=== PATIENT | female | born 1995 | race Caucasian/White ===

== ENCOUNTER 2020-07-18 01:52 | Outpatient (CLI) | payer MEDICAID, SELFPAY ==
--- NOTE | 2020-07-18 | DI.US_ITS ---
EXAM: US OB 2-3 TRIMESTER CLINICAL HISTORY: Z34.92, ANATOMY SURVEY. TECHNIQUE: Transabdominal obstetrical ultrasound was performed. COMPARISON: US US OB <14 WK W/TRANSVAG from 04/05/2020 FINDINGS: There is a single viable intrauterine gestation with cardiac activity identified-137 bpm. Amniotic fluid: There is a normal amount of amniotic fluid. Placental location: The placenta is anterior grade 1,with no evidence of placenta previa.This is from typical placenta to the internal cervical os is 7.8 cm on today's study. Cervical length is 3.2 cm and closed. ANATOMY: A 3 vessel umbilical cord is seen. A four-chamber cardiac view was obtained. Right and left ventricular outflow tracts were imaged. There are no obvious abnormalities of the spinal column evident. There is no obvious abnormal ity of the anterior abdominal wall. stomach and urinary bladder are identified and there is no evidence of hydronephrosis. No abnormalities of the upper lip region are identified. No evidence of choroid plexus cysts i n the brain. Dating parameters place this at approximately 22 weeks and 3 days gestational age. BPD measures 22 weeks and 6 days HC measures 22 weeks and 4 days AC measures 22 weeks and 5 days FL measures 21 weeks and 3 days Estimated weight is 486 gm-1 pound 1 ounce Fetus is at the 71st percentile on the Hadlock scale. IMPRESSION:: Single viable intrauterine gestation which is approximately 22 weeks and 3 days gestati onal age, implying an ROLANDO of November 18, 2020. There are no obvious anomalies evident on today's study. The placenta is anterior with no evidence of placenta previa. There is a normal amount of amniotic fluid. DATA REPOSITORY:
== END 2020-07-18 02:12 ==
PROVIDERS: Visit Provider Obstetrics & Gynecology
DX: Z34.92 Encounter for supervision of normal pregnancy, unspecified, second trimester (principal); Z3A.22 22 weeks gestation of pregnancy
CPT/HCPCS: 76805